=== PATIENT | male | born 1965 | race Caucasian/White ===

== ENCOUNTER → 2020-10-12 11:47 | Outpatient (CLI) | payer OTHER, SELFPAY ==
--- NOTE | ~2020-10-12 | XR_ITS ---
EXAMINATION: XR chest 2V 10/12/2020 11:57 INDICATION: Cough PROCEDURE: 2 view chest COMPARISON: No prior studies for comparison. FINDINGS: The lungs are clear. The cardiomediastinal silhouette is within normal limits. There are no pleural effusions. There is no pneumothorax suspected. IMPRESSION: 1: NO ACUTE CARDIOPULMONARY DISEASE. Reviewed, dictated and finalized at location A.
== END ==
PROVIDERS: PCP Family Medicine; Visit Provider Nurse Practitioner Family
DX: R05 Cough (principal)
CPT/HCPCS: 71046

== ENCOUNTER 2023-02-17 11:40 | Emergency (ER) | payer BC, SELFPAY ==
--- NOTE | 2023-02-17 11:57 | ED.URI ---
HPI - URI/Sore Throat General Chief Complaint: Upper Respiratory Infection Stated Complaint: Sore Throat, Congestion, Cough Time Seen by Provider: 02/17/23 11:57 Source: patient Mode of arrival: ambulatory Limitations: no limitations History of Present Illness HPI Narrative: Patient is a 57-year-old male who presents with 10 days of congestion, sore throat and cough. Patient states last week he was taking Mucinex with moderate relief but has not taken any the last few days. Patient states last night his sore throat worsened along with his cough. Denies any fevers, chills, body aches, ear pain, nausea, vomiting, diarrhea. Does report minor sinus pressure/pain and headache. Patient was treated for sinusitis a month ago. tested positive for COVID today but has also been sick for 10-14 days. Related Data Home Medications Medication Instructions Recorded Confirmed blood-glucose meter #1 ea 07/04/19 12/17/22 fluticasone propionate 50 2 spray intranasal DAILY 07/04/19 02/17/23 mcg/actuation nasal spray,suspension lancets 33 gauge (OneTouch Delica #100 ea 07/04/19 12/17/22 Lancets) Lactobacillus-Bifidobacterium 30 30 cap PO DIRECTED 07/24/19 02/17/23 billion cell capsule,delayed release (Ultimate Radha Probiotic) glimepiride 1 mg tablet 1 mg PO QAM 10/02/21 02/17/23 prasterone (dhea) 50 mg tablet 50 mg PO BID 04/02/22 02/17/23 (DHEA) brinzolamide 1 %-brimonidine 0.2 % 1 drp EACH EYE ONCE 12/17/22 02/17/23 eye drops,suspension (Simbrinza) dapagliflozin propanediol 10 mg 10 mg PO DAILY 12/17/22 02/17/23 tablet (Farxiga) testosterone enanthate 100 mg/0.5 100 mg subcut WEEKLY 12/17/22 02/17/23 mL subcutaneous auto-injector (Xyosted) tirzepatide 7.5 mg/0.5 mL mg subcut 02/17/23 02/17/23 subcutaneous pen injector (Mounjaro) Allergies Allergy/AdvReac Type Severity Reaction Status Date / Time esomeprazole Allergy Unknown Unknown Verified 02/17/23 11:49 amoxicillin [From Augmentin] AdvReac Mild hot and Verified 02/17/23 11:49 hank clavulanic acid AdvReac Mild hot and Verified 02/17/23 11:49 [From Augmentin] hank Review of Systems Review of Systems: All systems reviewed & are unremarkable except as noted in HPI and below Constitutional: Constitutional: Denies body ache(s), Denies chills, Denies fatigue, Denies fever(s), Reports headache(s), Denies malaise and Denies weakness Eyes: Eyes: Denies blurry vision, Denies itchy eyes and Denies loss of vision ENT: Denies otalgia, Reports headache(s), Reports nasal congestion, Reports sinus pain, Reports sinus pressure and Reports sore throat Cardiovascular: Cardiovascular: Denies chest pain, Denies irregular heart rhythm and Denies dyspnea Respiratory: Respiratory: Reports cough and Denies dyspnea Gastrointestinal: Gastrointestinal: Denies abdominal pain, Denies diarrhea, Denies nausea and Denies vomiting Musculoskeletal: Musculoskeletal: Denies back pain, Denies myalgias and Denies arthralgias Integumentary/Breasts: Skin/Breast: Denies pruritus and Denies rash Neurologic: Denies headache(s), Denies loss of vision and Denies weakness Psychiatric: Psychiatric: Reports no additional psychiatric complaints Endocrine: Endocrine: Denies fatigue Allergic/Immunologic: Allergic/Immunologic: Denies itchy eyes PMFSH Past Medical History Medical History Asthma BMI 33.0-33.9,adult BMI 34.0-34.9,adult BMI 36.0-36.9,adult Body mass index [BMI] 33.0-33.9, adult (12/06/17) Cough DDD (degenerative disc disease), cervical Dyslipidemia Essential (primary) hypertension Fibromyalgia GERD without esophagitis Hypogonadism male Muscle spasm Neck pain of over 3 months duration Neuropathy 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
[2023-02-17 11:58] VITALS: BP 119/83; PULSE 104; RESP 16; TEMP 36.4; O2SAT 99
[2023-02-17 12:02] VITALS: BP 119/83; PULSE 104; RESP 16; TEMP 36.4; O2SAT 99
== END 2023-02-17 13:04 | disposition home or self-care (01) ==
PROVIDERS: Emergency Provider Nurse Practitioner Family; PCP Family Medicine
DX: J06.9 Acute upper respiratory infection, unspecified (principal); E78.5 Hyperlipidemia, unspecified; I10 Essential (primary) hypertension; E11.9 Type 2 diabetes mellitus without complications; Z79.899 Other long term (current) drug therapy; Z20.822 Contact with and (suspected) exposure to COVID-19
CPT/HCPCS: 87081; 87426; 87880; 99213; C9803; G0463

== ENCOUNTER 2023-07-20 13:06 | Outpatient (CLI) | payer BC, SELFPAY ==
--- NOTE | 2023-07-20 13:39 | ECG_ITS ---
Measurements Intervals [place] Rate: 78 P: 51 WV: 162 QRS: -55 QRSD: 91 T: 59 QT: 342 QTc: 391 Interpretive Statements SINUS RHYTHM MARKED LEFT AXIS DEVIATION [QRS AXIS < -30] ANTEROSEPTAL MYOCARDIAL INFARCTION [40+ ms Q WAVE IN V1-V4], OF INDETERMINATE AGE NO PREVIOUS ECG AVAILABLE FOR COMPARISON Electronically Signed On 07-20-2023 15:22:38 E COMMERCE ANALYST by Varinder Stratton M.D.
[2023-07-20 14:12] LABS: Anion Gap 4 mmol/L (8-16); Blood Urea Nitrogen 32 mg/dL (9-20); Calcium 9.5 mg/dL (8.4-10.2); Carbon Dioxide 31 mmol/L (22-30); Chloride 102 mmol/L (98-107); Estimated Glomerular Filt Rate > 60; Glucose 97 mg/dL (65-110); Potassium 4.5 mmol/L (3.4-5.0); Sodium 137 mmol/L (137-145)
== END 2023-07-20 13:07 | disposition home or self-care (01) ==
LOC: ANHSURGERY 13:39
PROVIDERS: Anesthesiology; PCP Family Medicine; Visit Provider Surgery
DX: E11.9 Type 2 diabetes mellitus without complications (principal); Z01.818 Encounter for other preprocedural examination
CPT/HCPCS: 36415; 80048; 82728; 83540; 83550; 85025; 93005; 99195

== ENCOUNTER 2023-07-26 01:05 | Day surgery (SDC) | payer BC, SELFPAY ==
[2023-07-16 10:13] VITALS: BMI 28.0
--- NOTE | 2023-07-16 10:20 | PC.NURSE ---
Report to the Outpatient Waiting Room, entrance under the green pavilion located off [facility], at time 12:00 on date 07/26/23. Planned Procedure Time: 2:00. Time changes happen often and if your time is changed the preop area will call you the afternoon before. - You and your visitor will be asked to self-screen and do not enter if you have any COVID symptoms. - A mask is optional within the hospital at this time. Patients may have clear liquids (water, carbonated beverages, clear teas, apple juice) until 3 hours prior to surgery with a maximum of 20 ounces. - No food from midnight until time of surgery Take the following medications with a SIP of water the morning of surgery: PREGABALIN DO NOT STOP ANY OF YOUR OTHER PRESCRIPTION MEDICATIONS PRIOR TO SURGERY ?EXCEPT THE FOLLOWING Medications to discontinue per physician: VITAMINS/SUPPLEMENTS Date to take last dose: 07/22/23 Please no make-up, nail lithuanian, hairspray, perfume, deodorant, or body powder the day of surgery. No jewelry (including any body piercings) or valuables the day of surgery, leave them at home. Please take a shower or bath the night before, or the morning of, surgery with an antibacterial soap. Wear comfortable, loose fitting clothing. - Jewelry must be removed prior to entering the operating room. Rings and piercings that are not removed may be cut off. - The hospital will not accept responsibility for valuables. - Please leave all valuables, including medications, at home the day of surgery. If you are going home after surgery, a licensed truck driver flatbed must drive you home. - NO public transportation without another adult if you receive anesthesia. - We recommend that an adult stay with you for 24 hours following discharge. - We also recommend that you do not drive, make important decision, drink alcoholic beverages, or take any drugs that were not prescribed by your health care provider for at least 24 hours after your discharge time. Follow any additional instructions given to you from your surgeon. If you or anyone in your household have experienced Covid symptoms in the past week, please notify your surgeon or the nurse liaison at the phone number below for possible testing. Telephone instructions given to PT - SHELLEY REYNA and asked if any additional questions and then verbalized understanding. Patient advised to call surgeon office or pre surgery nurse liaison [phone] if any additional questions.
[2023-07-26] VITALS (9 sets, daily range): BP systolic 112–142; BP diastolic 70–87; PULSE 81–100; RESP 12–21; TEMP 36.4–36.5; O2SAT 100
--- NOTE | 2023-07-26 11:41 | WPDHPUPDATE1 ---
History and Physical Update Update Date/Time: 07/26/23 11:41 History and Physical has been reviewed, including an updated exam of the patient. There are NO changes in the patient's condition. Risks, benefits, and alternatives have been discussed and questions answered. Patient agrees to proceed with procedure.
[2023-07-26] MEDS: ACETAMINOPHEN 500 MG TABLET 1000 MG PO (12:00)
[2023-07-26] MEDS: KETOROLAC 15 MG/ML VIAL (*BKC) IV PUSH ×2 (12:00→14:17)
[2023-07-26] MEDS: LACTATED RINGERS 1,000 ML 30 ML IV CONT (12:00)
[2023-07-26 12:12] LABS: Glucose Point of Care 111 mg/dl (65-105)
--- NOTE | 2023-07-26 12:13 | WPDANESEPPF ---
Anes - Initial Pre Proc Eval Procedure: Operation Date: 07/26/23 14:00 Proposed Procedures p Excision Thrombosed Hemorrhoid Times One, Possible Banding Hemorrhoids - Gus Dutton MD Date/Time: 07/26/23 12:13 Surgeon: Gus Dutton MD Pre Op Diagnosis: Thrombosed Internal Hemorrhoid Patient Data Age: 57 Gender: M Height: 1.7 m Weight: 81.2 kg Allergies Allergy/AdvReac Type Severity Reaction Status Date / Time esomeprazole Allergy Unknown Unknown Verified 07/21/23 08:26 amoxicillin [From Augmentin] AdvReac Mild hot and Verified 07/21/23 08:26 shaky clavulanic acid AdvReac Mild hot and Verified 07/21/23 08:26 [From Augmentin] shaky Home Medications Medication Instructions Recorded Confirmed Type blood-glucose meter #1 ea 07/04/19 07/21/23 History fluticasone propionate 50 2 spray intranasal DAILY 07/04/19 07/21/23 History mcg/actuation nasal spray,suspension lancets 33 gauge (OneTouch Delica #100 ea 07/04/19 07/21/23 History Lancets) Lactobacillus-Bifidobacterium 30 30 cap PO DIRECTED 07/24/19 07/21/23 History billion cell capsule,delayed release (Ultimate Radha Probiotic) prasterone (dhea) 50 mg tablet 50 mg PO BID 04/02/22 07/21/23 History (DHEA) brinzolamide 1 %-brimonidine 0.2 % 1 drp EACH EYE ONCE 12/17/22 07/21/23 History eye drops,suspension (Simbrinza) rabeprazole 20 mg tablet,delayed 20 mg PO DAILY #90 tabs 01/19/23 07/21/23 Rx release inhalational spacing device #1 ea 02/17/23 07/21/23 Rx (Aerochamber MV spacer) glucagon 1 mg/0.2 mL subcutaneous 2 mg (0.4 mL) subcut ONCE #4 mL 03/04/23 07/21/23 Rx auto-injector (Gvoke HypoPen 2-Pack) tirzepatide 15 mg/0.5 mL 15 mg (0.5 mL) subcut WEEKLY #6 mL 05/14/23 07/21/23 Rx subcutaneous pen injector (Mounjaro) testosterone enanthate 100 mg/0.5 100 mg (0.5 mL) subcut WEEKLY #2 mL 05/27/23 07/21/23 Rx mL subcutaneous auto-injector (Xyosted) pregabalin 100 mg capsule 100 mg PO BID #180 caps 06/22/23 07/21/23 Rx tadalafil 20 mg tablet (Cialis) 20 mg PO DAILY PRN sexual activity 06/23/23 07/21/23 Rx #30 tabs lisinopril 10 mg tablet 10 mg PO DAILY #30 tabs 07/07/23 07/21/23 Rx meloxicam 7.5 mg tablet 7.5 mg PO DAILY #30 tabs 07/07/23 07/21/23 Rx blood-glucose sensor (Dexcom G7 #3 ea 07/21/23 Rx Sensor device) buspirone 5 mg tablet 5 mg PO BID #60 tabs 07/21/23 07/21/23 Rx hydroxyzine pamoate 50 mg capsule 50 mg PO BID PRN anxiety #30 caps 07/21/23 07/21/23 Rx Laboratory Tests 07/26/23 12:10 POC Capillary Glucose 111 H mg/dl (65-105) Patient hx anesthesia problems: none Family hx anesthesia problems: none Results Review: All pre-operative results and documents have been reviewed as part of the pre-operative evaluation. 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
[2023-07-26] MEDS: ceFAZolin 2 GM/D5W 50 ML 2 GM/50 ML BAG IVPB (13:05)
[2023-07-26] MEDS: LIDO 1%/EPINEPHRINE 1:100,000 50 ML VIAL 30 ML INFILTRATE (13:38)
[2023-07-26] MEDS: BUPivacaine HCL 0.5% 10 ML AMP 30 ML INFILTRATE (13:39)
[2023-07-26] MEDS: LIDOCAINE HCL 2% GEL UROJET 10 ML PKG MUCOUS MEM (14:10)
[2023-07-26 14:32] LABS: Glucose Point of Care 100 mg/dl (65-105)
[2023-07-26] MEDS: oxyCODONE HCL (*CRX) 5 MG TAB IR PO (15:36)
--- NOTE | 2023-07-28 12:31 | W.PM.PROC2 ---
Procedure Note - Detailed Date of Procedure 07/26/23 Pre-op Diagnosis Thrombosed Internal Hemorrhoid Post-op Diagnosis Same ( Thrombosed internal hemorrhoid x1, grade 2 internal hemorrhoids x2) Procedure Performed Anorectal examination under anesthesia, excisional hemorrhoidectomy x1, banding of internal hemorrhoids x2 Surgeon Gus Dutton MD Income Auditor Sara [place]OCK Anesthesia General Indications patient is a 57-year-old gentleman who 4 weeks ago had a thrombosed internal hemorrhoid. It did not need [place]. The hemorrhoid has decreased in size but is still present. Sometimes causes soreness. He would like to go ahead have a hemorrhoid excised. Findings Circumferential evaluation anal canal with anal speculum in place revealed no evidence of distal rectal masses or polyps. Patient did have a thrombosed internal hemorrhoid in the left lateral site and 9 o'clock position patient prone. It was about 1cm in diameter. Patient also had smaller nonthrombosed grade 2 internal hemorrhoids located at the 6 o'clock position anteriorly and the 3 o'clock position on the right lateral side. Description of Procedure After informed consent was obtained patient brought to the operating room was placed under general endotracheal anesthesia on the gurney and then was turned onto the prone danilo-knife position on the operating table. Care was taken make sure all the potential pressure points were well padded. The next were then taped apart to expose the perianal region. It was then prepped and draped usual sterile fashion. Time-out was then performed correctly identifying the patient as well as procedure to be performed. No site marking was needed. He was given perioperative IV antibiotics. 1st started by performing gentle anal dilation sphincters. Once this was done the lubricated anal speculum placed in the anal canal. A circumferential evaluation of distal rectum and anal canal was performed showing no evidence of distal rectal masses or lesions. The patient had a 1cm thrombosed with non ulcerated internal hemorrhoid left lateral side the 9 o'clock position with the patient prone. He had smaller grade 2 internal hemorrhoids located the anterior position 6 o'clock and the 3 o'clock position the right lateral side. First started by excising out the thrombosed hemorrhoid 9 o'clock position. A 2-0 chromic sutures placed at the apex of the hemorrhoid and then 1% lidocaine mixed with 0.5% Marcaine was injected under the hemorrhoid. A 15 blade scalpel was then used to incise the tissue on either side of the hemorrhoid in a elliptical incision out onto the perianal skin. Metzenbaum scissors was then used to spread underneath the hemorrhoid tissue superficial to the internal sphincter muscle fibers. I then completely excised off the hemorrhoid tissue utilizing electrocautery. The hemorrhoids passed off the table sent to pathology for examination. Hemostasis in the incision was then achieved utilized electrocautery. The incision was then closed by running the 2-0 chromic suture in a locking fashion up to the perianal skin. A 3-0 Vicryl suture was then used to completely close the perianal skin portion of the incision. This is done a running locking fashion as well. I then proceeded to perform rubber-band ligation of the 2 smaller grade 2 internal hemorrhoids at the 3:00 and 6:00 positions. Double or bands were applied to the hemorrhoid with the or band theology teacher instrument. The internal hemorrhoid tissue was gathered into the band well and is expected to necrosis and fall out. No other hemorrhoids were treated. I then irrigated out the anal canal sterile saline solution hemostasis was good. I then injected the remaining local anesthetic mixture we had around the anal opening for perianal block. Additional local anesthetic was injected for bilateral pudendal nerve block. There is then cleaned and then a 1% lidocaine jelly soaked surgical foam packing was
== END 2023-07-26 16:24 | disposition home or self-care (01) ==
PROVIDERS: PCP Family Medicine; Visit Provider Surgery
PROC: (CPT 46255; principal; 2023-07-26 14:00)
DX: K64.5 Perianal venous thrombosis (principal); J45.909 Unspecified asthma, uncomplicated; E78.5 Hyperlipidemia, unspecified; I10 Essential (primary) hypertension
CPT/HCPCS: 46255; 82948; 88304; A9270; J0690; J1885; J2250; J3010; J7120

== ENCOUNTER 2024-06-20 09:43 | Outpatient (CLI) | payer BC, SELFPAY ==
--- NOTE | 2024-07-10 15:36 | P.SLEEP_ITS ---
Sleep Study Date of Study: 06/20/24 Ordering Provider: JADEN Cruz Interpreting Physician: Jonelle Daniels DO Sleep Study Type: Polysomnogram Height: 1.7 m Weight: 68.946 kg Body Mass Index: 23.8 Neck Circumference (inches): 15 [place]: 15 Reason for Sleep Study Excessive daytime sleepiness Sleep History The patient is a 58-year-old male that had a sleep study ordered by the pulmonary group for evaluation of sleep apnea. The patient denies awakening from sleep short of breath. He rarely awakens at night with heartburn, belching or cough. He occasionally snores and is occasionally loud enough that others complain. He occasionally has trouble sleeping when he has a cold. He rarely wakes up gasping for air throughout the night. He frequently has breathing problems at night observed by himself or others. He occasionally sweats excessively at night. He frequently has heart palpitations or irregular heartbeats during the night. He occasionally falls asleep during the day but never while driving. He constantly has trouble at school or work due to sleepiness. He denies feeling unable to move while waking up or falling asleep. He constantly experiences vivid dreamlike scenes upon awakening or falling asleep. He frequently feels afraid of going to sleep. He occasionally has nightmares. He frequently remembers his dreams. He constantly has thoughts racing through his mind. He occasionally feels sad or depressed. He constantly has anxiety. He constantly has muscular tension. He constantly notices parts of his body jerk. He rarely kicks during the night. He denies having crawling and aching feelings in his legs but occasionally has leg pain during the night. He occasionally grinds his teeth during sleep and occasionally awakens with morn ing jaw pain. He is constantly bothered by pain during the day and constantly awakened by pain during the night. He constantly wakes up feeling stiff in the morning. He constantly wakes up with sore or achy muscles. He constantly wakes up with pain in the neck, spine and other joints. He goes to bed at 11:00 p.m. on weekdays and at midnight on the weekends. It takes him anywhere from 10-120 minutes to fall asleep. He wakes up 3-4 times throughout the night to urinate and is typically able to fall back asleep within 15-60 minutes. He wakes up every 1 and half to 2 hours. He wakes up at 8:00 a.m. on weekdays and between 10-12 on the weekends. He typically gets 2 and half to 3 hours of sleep per night. He will stay in bed for less than 5 minutes after waking up in the morning. He currently lives with his and adult son. He denies consuming any caffeinated beverages within 2 hours of bedtime. He denies engaging in physical exercise before bedtime. He denies reading and watching television before falling asleep. He will take naps in afternoon or the evening but they are not refreshing. He consumes 4 caffeinated beverages per day. He will have up to 2 alcoholic beverages per day. He denies tobacco and recreational drug use. 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 Essential (primary) hypertension Neck pain of over 3 months duration Cough DDD (degenerative disc disease), cervical Dyslipidemia Fibromyalgia GERD without esophagitis Hypogonadism male Muscle spasm Screening for prostate cancer Strain of other muscles, fascia and tendons at shoulder and upper arm level, right arm, initial encounter Subjective memory complaints Type 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, 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 Upper back pain on right side Asthma Neuropathy Surgical History Surgical History Hx of hemorrhoidectomy Anorectal examination under anesthesia, excisional hemorrhoidectomy x1, banding of internal hemorrhoids x2 07/26/23 SAW History of foot surgery History of surgery on wrist History of cholecystectomy History of tonsillectomy Family History Family History Father Diabetes mellitus Hypertension Grandparent Family history of malignant neoplasm Family history of malignant neoplasm of breast in first degree relative Mother Family history of chronic obstructive pulmonary disease Asthma Sibling No problems noted. 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 Gender identity (if verbalized by the patient): Male Spiritual care concerns: No Medications Home Medications ?Medication ?Instructions ?Recorded ?Confirmed ?Type blood-glucose meter #1 ea 07/04/19 06/05/24 History fluticasone propionate 50 2 spray intranasal DAILY 07/04/19 06/05/24 History mcg/actuation nasal spray,suspension lancets 33 gauge (BravoflyTouch Delica #100 ea 07/04/19 06/05/24 History Lancets) Lactobacillus-Bifidobacterium 30 30 cap PO DIRECTED 07/24/19 06/05/24 History billion cell capsule,delayed release (Ultimate Radha Probiotic) glucagon 1 mg/0.2 mL subcutaneous 2 mg (0.4 mL) subcut ONCE #4 mL 03/04/23 06/05/24 Rx auto-injector (Gvoke HypoPen 2-Pack) tadalafil 20 mg tablet (Cialis) 20 mg PO DAILY PRN sexual activity 06/23/23 06/05/24 Rx #30 tabs blood-glucose sensor (Dexcom G7 #3 ea 07/21/23 06/05/24 Rx Sensor device) hydroxyzine pamoate 50 mg capsule 50 mg PO BID PRN anxiety #30 caps 02/07/24 06/05/24 Rx rabeprazole 20 mg tablet,delayed 20 mg PO DAILY #90 tabs 02/17/24 06/05/24 Rx release atomoxetine 60 mg capsule 60 mg PO DAILY 02/24/24 06/05/24 History azelastine 137 mcg (0.1 %) nasal 1 spray intranasal Q12H 02/24/24 06/05/24 History spray Farxiga 5 mg tablet (dapagliflozin See Rx Instructions .Route 03/13/24 06/05/24 Rx propanediol) .COMPLEX #90 tabs aspirin 81 mg tablet,delayed 81 mg PO DAILY 03/16/24 06/05/24 History release latanoprost 0.005 % eye drops 1 drp EACH EYE DAILY 03/16/24 06/05/24 History pregabalin 200 mg capsule 200 mg PO BID #60 caps 04/13/24 06/05/24 Rx meloxicam 15 mg tablet 15 mg PO DAILY #30 tabs 05/11/24 06/05/24 Rx tirzepatide 15 mg/0.5 mL See Rx Instructions .Route 05/16/24 06/05/24 Rx subcutaneous pen injector .COMPLEX #12 mL (Mounjaro) testosterone enanthate 50 mg/0.5 50 mg (0.5 mL) subcut WEEKLY #6 mL 05/22/24 06/05/24 Rx mL subcutaneous auto-injector (Xyosted) lisinopril 5 mg tablet See Rx Instructions .Route 05/26/24 06/05/24 Rx .COMPLEX #90 tabs cyclobenzaprine 5 mg tablet 5 mg PO TID PRN 06/05/24 06/05/24 History naltrexone 1.5 mg capsule 4.5 mg PO .QD 06/05/24 06/05/24 History rosuvastatin 5 mg tablet 10 mg .Route .COMPLEX 06/05/24 06/05/24 History valacyclovir 500 mg tablet 500 mg PO DAILY #90 tabs 06/05/24 Rx eszopiclone 2 mg tablet (Lunesta) 2 mg PO ONCE #1 tablet 06/20/24 Rx Sleep Procedure A full night polysomnogram using the Nabto multi-channel system recorded the standard physiologic parameters including EEG, EOG, submentalis EMG, anterior tibialis EMG, EKG, body position, nasal and oral airflow using nasal pressure sensor and thermistor.? Respiratory parameters of chest and abdominal movements were recorded with Respiratory Inductance Plethysmography belts. Oxygen saturation was recorded by pulse oximetry. Video monitoring was also performed. Sleep stages, periodic limb movements, and EEG arousals were scored in 30 second epochs according to the criteria of the AASM Scoring Manual. The Apnea-Hypopnea Index was calculated using CMS guidelines for definition of hypopnea with 4% O2 desaturations while scoring respiratory events. Sleep Architecture The total recording time was 491.3 minutes.? The total sleep time was 278.5 minutes. Sleep latency was 7.3 minutes. REM latency was 402.5 minutes. Sleep efficiency was 56.7%. The patient had 47 awakenings for an awakening index of 10.1. Wake after sleep onset time was 205.5 minutes. The patient spent 79.0 minutes, 28.4% of total sleep time in Stage N1. The patient spent 169.5 minutes, 60.9% in Stage N2. The patient spent 0.0 minutes, 0.0% in Stage N3. The patient spent 30.0 minutes, 10.8% in Stage REM sleep. REM without atonia was present on the following epochs: 821, 822, 829, 831, 837, 838, 841-843, 849-851, 860-863, 869-871, 879-881 and 887. Gross movement was seen on video on all of the epochs. 821: b/l foot movt 822: Right foot movt 829: b/l foot movt 831: Right foot movt 837: b/l foot movt 841: b/l foot movt 842: b/l feet and hands 843: b/l foot movt and right arm and hand 849-851: b/l foot movt 860-863: b/l foot movt 869-871: b/l foot movt 879-881: b/l foot movt 887: b/l foot movt Respiratory Analysis The patient had 8 hypopneas, 2 obstructive apneas and 2 central apneas for an overall Apnea Hypopnea Index of 2.6. The REM Apnea Hypopnea Index was 16.0. The NREM Apnea Hypopnea Index was 1.9. The patient had a Central Apnea Hypopnea Index of 0.4. There was no evidence of Akil-Wagoner Respirations. Arousals There were 144 total arousals for an arousal index of 31.0. There were 110 spontaneous arousals for an index of 23.7. There were 20 arousals due to respiratory events for an index of 4.3. There were 0 arousals due to periodic limb movements for an index of 0.? There were 15 arousals due to isolated limb movements for an index of 3.2. Periodic Limb Movements The patient had 35 isolated limb movements with an index of 7.5. The patient had 0 periodic limb movements with an index of 0. Patient had a total of 35 limb movements with a total limb movement index of 7.5. Oximetry Data The patient had an average oxygen saturation of 93.7% in sleep with a minimum oxygen saturation of 88.0% and a maximum oxygen saturation of 98.0%. The patient had 14 oxygen desaturations that were 4% or greater resulting in an Oxygen Desaturation Index of 3.0.? The patient spent 0.5 minutes, 0.1% of total sleep time with an oxygen saturation below 88%. Snoring Profile Mild snoring was present intermittently throughout the study. Cardiac Profile The EKG showed normal sinus rhythm with rare PVCs. The patient had an average pulse rate of 82.3 bpm with a minimum pulse of rate of 69.0 bpm and a maximum pulse rate of 108.0 bpm.? EEG Profile No signs of seizure activity seen. Assessment and Plan Assessment and Plan (1) Excessive daytime sleepiness: Code(s): G47.19 - Other hypersomnia Status: Acute Assessment and Plan: The patient had an overall AHI of 2.6 with desaturation down to 88%. This is not consistent with sleep-disordered breathing. Based on the patient's sleep history, he has both sleep-onset and sleep maintenance insomnia. He also mentioned constantly feeling anxious. Uncontrolled mood disorders can contribute to both insomnia and daytime hypersomnia. I recommend that the patient complete a PHQ-9 and JIMENEZ-7 for further evaluation of mood disorders and review the results with his PCP. I also recommend CBT-Insomnia along with improvement of his current sleep hygiene. Insomnia Tips * Have a wind down period before bed where there are no electronics, blue light or stimulating activities. 30 minutes- 1 hour. * Establish a set wake-up time for yourself, and get up at the set time even if you feel like you need more sleep * Do not go to bed until you are ready to fall asleep. Do not go to bed because it is bedtime * If you have not gone to sleep after what feels like 20 minutes, get up and leave the bedroom. Meditate, pray, listen to soft music or read a boring book until you feel sleepy.? No work or productive activities. Go back to bedroom and try to fall asleep. Repeat cycle as many times until you fall asleep. * The bed is only meant for sleep and sex. Avoid activities like reading, smoking, listening to the radio, using the computer, or watching TV in bed. * Try to keep active during the day and avoid napping. * No caffeine after noon. (2) Abnormal REM sleep: Code(s): G47.8 - Other sleep disorders Status: Acute Assessment and Plan: The patient had REM without atonia present on multiple epochs. Movement of his extremities were seen on video and are listed in detail above. In spontaneously occurring cases, RBD is a prodromal syndrome of alpha-synuclein neurodegeneration. Thus, the vast majority of RBD patients will eventually demonstrate signs and symptoms of Parkinson disease (PD) or a related disorder (eg, multiple system atrophy or dementia with Lewy bodies), often after a prolonged interval. Prior to the emergence of a parkinsonian syndrome, patients may have subtle sensory, motor, and cognitive deficits, including anosmia and constipation, consistent with an impending neurologic disorder. There was no mention of dream enactment behavior in the patient's sleep history. I recommend asking the patient and his family about abnormal behaviors during sleep. Data The data obtained during this sleep study is adequate for interpretation. Certification This sleep study has been reviewed by a board certified sleep medicine physician.
[2024-07-11 11:27] VITALS: BMI 23.8
== END 2024-06-21 06:56 | disposition home or self-care (01) ==
PROVIDERS: PCP Family Medicine; Visit Provider Physician Assistant
DX: G47.10 Hypersomnia, unspecified (principal); G47.19 Other hypersomnia; G47.8 Other sleep disorders
CPT/HCPCS: 95810

== ENCOUNTER 2024-08-09 08:38 | Emergency (ER) | payer BC, SELFPAY ==
--- NOTE | 2024-08-09 08:38 | ED.URI ---
HPI - URI/Sore Throat General Chief Complaint: Upper Respiratory Infection Stated Complaint: SORE THROAT/SINUS/COLD Source: patient and RN notes reviewed Mode of arrival: ambulatory Limitations: no limitations Related Data Home Medications ?Medication ?Instructions ?Recorded ?Confirmed ?Last Taken ?Type blood-glucose meter #1 ea 07/04/19 06/05/24 Unknown History fluticasone propionate 50 2 spray intranasal DAILY 07/04/19 06/05/24 Unknown History mcg/actuation nasal spray,suspension lancets 33 gauge (OneTouch Delica #100 ea 07/04/19 06/05/24 Unknown History Lancets) Lactobacillus-Bifidobacterium 30 30 cap PO DIRECTED 07/24/19 06/05/24 Unknown History billion cell capsule,delayed release (Ultimate Radha Probiotic) atomoxetine 60 mg capsule 60 mg PO DAILY 02/24/24 06/05/24 Unknown History azelastine 137 mcg (0.1 %) nasal 1 spray intranasal Q12H 02/24/24 06/05/24 Unknown History spray aspirin 81 mg tablet,delayed 81 mg PO DAILY 03/16/24 06/05/24 Unknown History release latanoprost 0.005 % eye drops 1 drp EACH EYE DAILY 03/16/24 06/05/24 Unknown History cyclobenzaprine 5 mg tablet 5 mg PO TID PRN 06/05/24 06/05/24 Unknown History naltrexone 1.5 mg capsule 4.5 mg PO .QD 06/05/24 06/05/24 Unknown History rosuvastatin 5 mg tablet 10 mg .Route .COMPLEX 06/05/24 06/05/24 Unknown History Allergies Allergy/AdvReac Type Severity Reaction Status Date / Time esomeprazole Allergy Unknown Unknown Verified 08/09/24 08:53 amoxicillin (From Augmentin) AdvReac Mild hot and Verified 08/09/24 08:53 hank clavulanic acid (From AdvReac Mild hot and Verified 08/09/24 08:53 Augmentin) hank Review of Systems Review of Systems: CONSTITUTIONAL: Denies fever, chills, or sweats. EYES: Denies visual changes, redness, or discharge. ENT: Denies otalgia and sore throat CARDIOVASCULAR: Denies chest pain, palpitations, or edema. RESPIRATORY: Denies cough or dyspnea. GASTROINTESTINAL: Denies abdominal pain, nausea, vomiting, or diarrhea. GENITOURINARY: Denies dysuria or hematuria. SKIN: Denies rash or itching. MUSCULOSKELETAL: Denies back pain, joint pain, or myalgia. NEUROLOGIC: Denies headache, numbness, or weakness. Pertinent positives per HPI. 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 Essential (primary) hypertension Neck pain of over 3 months duration Cough DDD (degenerative disc disease), cervical Dyslipidemia Fibromyalgia GERD without esophagitis Hypogonadism male Muscle spasm Screening for prostate cancer Strain of other muscles, fascia and tendons at shoulder and upper arm level, right arm, initial encounter Subjective memory complaints Type 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, 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 Upper back pain on right side Asthma Neuropathy Surgical History Surgical History Hx of hemorrhoidectomy Anorectal examination under anesthesia, excisional hemorrhoidectomy x1, banding of internal hemorrhoids x2 07/26/23 SAW History of foot surgery History of surgery on wrist History of cholecystectomy History of tonsillectomy Family History Family History Father Diabetes mellitus Hypertension Grandparent Family history of malignant neoplasm Family history of malignant neoplasm of breast in first degree relative Mother Family history of chronic obstructive pulmonary disease Asthma Sibling No problems noted. 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 There is no relevant family history pertinent to the patient complaint. Exam Narrative: GENERAL: This is a well-nourished, well-developed patient, in no apparent distress. HEAD: normocephalic, atraumatic. EYES: PERRL. Sclera clear/white. Vision is grossly intact. EARS: External ears normal, auditory canals clear and without drainage, TMs normal without perforation. Hearing grossly intact. NOSE: External nose normal with no obvious nasal discharge, nares without redness, no rhinorrhea. THROAT: Mucous membranes moist, posterior pharynx clear. NECK: Neck supple, non-tender without lymphadenopathy, masses or thyromegaly. CARDIOVASCULAR: Regular rate and rhythm without murmurs, gallops, or rubs. RESPIRATORY: Clear to auscultation. Breath sounds equal bilaterally. No wheezes, rales, or rhonchi. GASTROINTESTINAL: Abdomen soft, non-tender, nondistended. Bowel sounds are active. No hepato-splenomegaly, or palpable masses. No guarding. SKIN: warm, intact with no suspicious lesions or rash, good texture and turgor. NEURO: awake, alert, and oriented to person, place and time. There were no obvious focal neurologic abnormalities. EXTREMITIES: No clubbing, cyanosis, or edema. No joint tenderness, effusion, or edema noted. BACK: Nontender without deformity or crepitance. No flank tenderness. Course Course Level of Care: Express Care Visit Vital Signs Vital signs: Vital Signs Oxygen Delivery Room Air 08/09/24 08:49 Temperature 97.9 F 08/09/24 08:54 Pulse Rate 90 08/09/24 08:54 Respiratory Rate 16 08/09/24 08:54 Blood Pressure 147/97 H 08/09/24 08:54 Pulse Oximetry 100 08/09/24 08:54 Oxygen Delivery Room Air 08/09/24 08:49 Reviewed MDM - URI/Sore Throat MDM Narrative Medical decision making narrative: After 24 hours on antibiotics throw tooth brush away and start using a new one. Increase your Vitamin C. Do not share drinks. Take Motrin alternating with Tylenol for pain and/or fever alternating every 4 hours. Increase fluids, avoid caffeine. Take a probiotic daily or eat a low sugar yogurt while taking the antibiotic. Follow up with Primary provider if not getting better this week Differential Diagnosis Differential diagnosis: Likely upper respiratory infection, viral infection and influenza Lab Data Attestation: I reviewed the patient's lab results. Labs: Lab Results 08/09/24 08/09/24 Range/Units 08:59 09:07 POC Influenza A Ag Negative (Negative) POC Influenza B Ag Negative (Negative) POC SARS CoV-2 Ag Negative (Negative) POC Grp A Strep Screen Negative (Negative) Critical Care Time Critical Care Time Critical Care Time: No Discharge Plan Discharge Clinical Impression: Acute bacterial pharyngitis Patient Disposition: Home, Self-Care Condition: Stable Instructions: Antibiotic Form, Pharyngitis (ED) Additional Instructions: After 24 hours on antibiotics throw tooth brush away and start using a new one. Increase your Vitamin C. Do not share drinks. Take Motrin alternating with Tylenol for pain and/or fever alternating every 4 hours. Increase fluids, avoid caffeine. Take a probiotic daily or eat a low sugar yogurt while taking the antibiotic. Follow up with Primary provider if not getting better this week Patient Language: Danish Prescriptions: New amoxicillin 500 mg tablet 500 mg PO BID 10 Days Qty: 20 0RF No Action Ultimate Radha Probiotic 30 billion cell capsule,delayed release(DR/EC) 30 cap PO DIRECTED Gvoke HypoPen 2-Pack 1 mg/0.2 mL auto-injector 2 mg subcut ONCE Qty: 4 0RF Rx Instructions: as a single dose; may repeat once after 15 minutes if no response atomoxetine 60 mg capsule 60 mg PO DAILY azelastine 137 mcg (0.1 %) spray,non-aerosol 1 spray intranasal Q12H Rx Instructions: administer into each nostril naltrexone 1.5 mg capsule 4.5 mg PO .QD aspirin 81 mg tablet,delayed release (DR/EC) 81 mg PO DAILY latanoprost 0.005 % drops 1 drp EACH EYE DAILY rosuvastatin 5 mg tablet 10 mg .ROUTE .COMPLEX Rx Instructions: 10 mg; cyclobenzaprine 5 mg tablet 5 mg PO TID PRN (DME) lancets [OneTouch Delica Lancets] 33 gauge misc See Rx Instructions .ROUTE .MEDSUPPLY Qty: 100 Rx Instructions: As directed (DME) blood-glucose meter Kit See Rx Instructions .ROUTE .MEDSUPPLY Qty: 1 Rx Instructions: As directed fluticasone propionate 50 mcg/actuation spray,suspension 2 spray NASAL DAILY Rx Instructions: spray 1 - 2 spray by intranasal route every day in each nostril as needed tadalafil [Cialis] 20 mg tablet 20 mg PO DAILY PRN (Reason: sexual activity) Qty: 30 2RF Rx Instructions: administer approximately 30min before sexual activity; do not use more than 1 dose per 24hrs (DME) Dexcom G7 Sensor Device See Rx Instructions .Route Qty: 3 6RF Rx Instructions: As directed for use with blood glucose testing hydroxyzine pamoate 50 mg capsule 50 mg PO BID PRN (Reason: anxiety) Qty: 30 1RF rabeprazole 20 mg tablet,delayed release (DR/EC) 20 mg PO DAILY Qty: 90 3RF Rx Instructions: take 1 tablet by oral route every day swallowing whole. Do not crush, chew and/or divide. dapagliflozin propanediol [Farxiga] 5 mg tablet See Rx Instructions .ROUTE .COMPLEX Qty: 90 2RF Dose Instruction: Take 1 tablet by mouth once daily Rx Instructions: Take 1 tablet by mouth once daily meloxicam 15 mg tablet 15 mg PO DAILY Qty: 30 4RF Xyosted 50 mg/0.5 mL auto-injector 50 mg subcut WEEKLY Qty: 6 0RF lisinopril 5 mg tablet See Rx Instructions .ROUTE .COMPLEX Qty: 90 0RF Dose Instruction: Take 1 tablet by mouth once daily Rx Instructions: Take 1 tablet by mouth once daily eszopiclone [Lunesta] 2 mg tablet 2 mg PO ONCE Qty: 1 0RF Rx Instructions: Take with you to sleep lab on the night of sleep study. Do not take with cyclobenzaprine. pregabalin 200 mg capsule 200 mg PO BID Qty: 60 2RF Mounjaro 15 mg/0.5 mL pen injector See Rx Instructions .ROUTE .COMPLEX Qty: 12 0RF Dose Instruction: INJECT 15 MG (0.5 ML) UNDER THE SKIN ONCE EVERY 7 DAYS Rx Instructions: INJECT 15 MG (0.5 ML) UNDER THE SKIN ONCE EVERY 7 DAYS valacyclovir 500 mg tablet 500 mg PO DAILY Qty: 90 0RF Follow-up/Referrals: Jovany Isabel MD [Primary Care Provider] - Time of Disposition: 09:11
[2024-08-09 08:54] VITALS: BP 147/97; PULSE 90; RESP 16; TEMP 36.6; O2SAT 100
[2024-08-09 09:01] LABS: EDSTREPNEGPOS1 Negative (Negative)
[2024-08-09 09:09] LABS: EDCOVIDSCREEN Negative (Negative); EDINFLUASCREEN Negative (Negative); EDINFLUBSCREEN Negative (Negative)
== END 2024-08-09 09:13 | disposition home or self-care (01) ==
PROVIDERS: Emergency Provider Nurse Practitioner; PCP Family Medicine
DX: J02.9 Acute pharyngitis, unspecified (principal); Z20.822 Contact with and (suspected) exposure to COVID-19; I10 Essential (primary) hypertension; E11.42 Type 2 diabetes mellitus with diabetic polyneuropathy; M19.90 Unspecified osteoarthritis, unspecified site; M50.30 Other cervical disc degeneration, unspecified cervical region; E78.5 Hyperlipidemia, unspecified; M79.7 Fibromyalgia; K21.9 Gastro-esophageal reflux disease without esophagitis; J45.909 Unspecified asthma, uncomplicated
CPT/HCPCS: 87081; 87426; 87804; 87880; 99213; G0463

== ENCOUNTER 2024-11-29 11:41 | Outpatient (CLI) | payer BC, SELFPAY ==
--- NOTE | ~2024-11-29 | XR_ITS ---
EXAM/ PROCEDURE: XR hand LT 2V - 11/29/2024 11:46 CDT HISTORY: 59 years old Male with M19.90 - Unspecified osteoarthritis, unspecified site COMPARISON: None available TECHNIQUE: Three view(s) FINDINGS/ IMPRESSION: There are no fractures or dislocations.Joint space narrowing, subchondral sclerosis, subchondral cyst formation and osteophyte formation, compatible with moderate osteoarthritis. Reviewed, dictated and finalized at location A.
--- NOTE | ~2024-11-29 | XR_ITS ---
EXAM/ PROCEDURE: XR scapula RT - 11/29/2024 11:46 CDT HISTORY: 59 years old Male with M89.8X1 - Other specified disorders of bone, shoulder COMPARISON: None available TECHNIQUE: Two view(s) FINDINGS/ IMPRESSION: There are no fractures or dislocations.Joint space narrowing, subchondral sclerosis, subchondral cyst formation and osteophyte formation, compatible with moderate osteoarthritis. Reviewed, dictated and finalized at location A.
--- NOTE | ~2024-11-29 | XR_ITS ---
EXAM/ PROCEDURE: XR hand RT 2V - 11/29/2024 11:46 CDT HISTORY: 59 years old Male with M19.90 - Unspecified osteoarthritis, unspecified site COMPARISON: None available TECHNIQUE: Three view(s) FINDINGS/ IMPRESSION: There are no fractures or dislocations.Joint space narrowing, subchondral sclerosis, subchondral cyst formation and osteophyte formation, compatible with moderate osteoarthritis. Reviewed, dictated and finalized at location A.
== END 2024-11-29 11:42 | disposition home or self-care (01) ==
PROVIDERS: PCP Family Medicine; Visit Provider Nurse Practitioner Adult Health
DX: M89.8X1 Other specified disorders of bone, shoulder (principal); M19.90 Unspecified osteoarthritis, unspecified site; G89.29 Other chronic pain
CPT/HCPCS: 73010; 73120

== ENCOUNTER 2025-02-16 10:05 | Outpatient (CLI) | payer BC, SELFPAY ==
--- NOTE | ~2025-02-16 | XR_ITS ---
Clinical history:Neck pain. EXAM:X-ray cervical spine 2 TECHNIQUE:4 images of the cervical spine were obtained. Comparisons:None available FINDINGS: Predental space is within normal limits. No prevertebral soft tissue swelling. Cervical vertebral body heights are within normal limits. Mild intervertebral joint space narrowing at the C4-C5 level. Moderate joint space and at the C5-C6 level. Mild anterior osteophytosis in the mid and lower cervical spine. IMPRESSION: 1. No compression fracture in the cervical spine. 2. Moderate joint space narrowing at the C5-C6 level. If symptoms persist or worsen, consider a CT or MRI of the cervical spine for further assessment. Reviewed, dictated and finalized at location Q. IMPRESSION: 1. No compression fracture in the cervical spine. 2. Moderate joint space narrowing at the C5-C6 level. If symptoms persist or worsen, consider a CT or MRI of the cervical spine for f urther assessment.
--- NOTE | ~2025-02-16 | XR_ITS ---
Clinical history:Lower back pain EXAM:X-ray sacroiliac joints minimum 3 views TECHNIQUE:3 images of the cingulate joints were obtained. Comparisons:None available FINDINGS: There is bowel gas and stool projecting over the pelvis which limits evaluation. Mild joint space narrowing in the sacroiliac joints and hips. No sclerotic or destructive bone lesion definitely identified. No fracture identified. IMPRESSION: 1. Mild joint space narrowing in the sacroiliac joints. If symptoms persist or worsen, consider a short-term follow-up study or MRI imaging for further assessment. Reviewed, dictated and finalized at location Q. IMPRESSION: 1. Mild joint space narrowing in the sacroiliac joints. If symptoms persist or worsen, consider a short-term follow-up study or MRI tatyaan ging for further assessment.
--- NOTE | ~2025-02-16 | XR_ITS ---
XR lumbar spine 2-3V Indication: Neck pain, lbp Comparison: None Findings: Mild dextroconvex scoliosis. Moderate loss of vertebral height throughout. No acute fracture or subluxation. Severe loss of disc height L3-4, L4-5 and L5-S1 Soft tissues unremarkable Impression: No acute abnormality. Reviewed, dictated and finalized at location A. Impression: No acute abnormality.
== END 2025-02-16 10:06 | disposition home or self-care (01) ==
PROVIDERS: PCP Family Medicine
DX: M54.2 Cervicalgia (principal); M54.50 Low back pain, unspecified
CPT/HCPCS: 72040; 72100; 72202

== ENCOUNTER 2025-04-23 15:36 | Outpatient (CLI) | payer BC, SELFPAY ==
--- NOTE | ~2025-04-23 | XR_ITS ---
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 Findings: No acute fracture or malalignment. Moderate degenerative changes with calcific tendinopathy Soft tissues unremarkable. Impression: No acute fracture or malalignment. Reviewed, dictated and finalized at location P. OPERATOR Impression: No acute fracture or malalignment.
== END 2025-04-23 15:37 | disposition home or self-care (01) ==
LOC: MICIMG 15:37
PROVIDERS: PCP Family Medicine; Visit Provider Nurse Practitioner Family
DX: M25.511 Pain in right shoulder (principal)
CPT/HCPCS: 73030